=== PATIENT | male | born 1980 | race Caucasian/White ===

== ENCOUNTER 2022-02-27 20:57 | Emergency (ER) | payer BC ==
[2022-02-27 21:12] VITALS: TEMP 98.4
[2022-02-27] MEDS ORDERED: KETOROLAC 15 MG/ML 1 ML VIAL IM STA (22:08)
[2022-02-27] MEDS ORDERED: CYCLOBENZAPRINE 10MG STARTER 3 TAB BTL PO STA (22:09)
[2022-02-27] MEDS ORDERED: IBUPROFEN 600 MG STARTER PACK 4 TAB BTL PO STA (22:09)
--- NOTE | 2022-02-27 22:11 | ED ---
Back Pain HPI - General Chief Complaint: Back Pain/Injury Stated Complaint: Right lower back pain Time Seen by Provider: 02/27/22 21:58 Source: patient Limitations: no limitations - History of Present Illness Initial Comments: Patient with a long-standing history of recurrent right lower back problems presents with pain in the right lumbar area which has been bothering him since Tuesday. 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 Patient states any movement exacerbates the pain. There is some radiation into the thigh which is intermittent. Patient is able to ambulate but states that twisting and bending exacerbates the pain. No problems with bowel movements or urination. No fever or chills. There was no direct trauma. Patient has no immunosuppression. No IV drug abuse. No headache, no fever or chills, no changes in vision or hearing, no sore throat or difficulty with speech, no neck pain, no chest pain or shortness of breath, no abdominal pain, no nausea or vomiting, no changes in urination or bowel movements, no numbness or tingling, no extremity pain, no skin rashes or lesions. - Related Data Previous Rx's Medication Instructions Recorded Cyclobenzaprine [Flexeril] 10 mg PO TID PRN #20 tab 02/27/22 Ibuprofen [Motrin] 600 mg PO Q8HR PRN #30 tab 02/27/22 Allergies Allergy/AdvReac Type Severity Reaction Status Date / Time No Known Allergies Allergy Verified 02/27/22 21:08 Review of Systems ROS Statement: Those systems with pertinent positive or pertinent negative responses have been documented in the HPI. ROS Other: All systems not noted in ROS Statement are negative. Past Medical History Past Medical History: No Reported History History of Any Multi-Drug Resistant Organisms: None Reported Past Surgical History: No Surgical Hx Reported Past Psychological History: No Psychological Hx Reported Smoking Status: Never smoker Past Alcohol Use History: Occasional Past Drug Use History: None Reported General Exam - General Exam Comments Initial Comments: She does not appear to be ill or toxic. Vital signs reviewed noted be tachyc ardic in triage. However by auscultation his heart rate is 92. Limitations: no limitations General appearance: in distress Head exam: Present: atraumatic, normocephalic, normal inspection Eye exam: Present: normal appearance, PERRL, EOMI. Absent: scleral icterus, conjunctival injection, periorbital swelling ENT exam: Present: normal exam, mucous membranes moist Neck exam: Present: normal inspection. Absent: tenderness, meningismus, lymphadenopathy Respiratory exam: Present: normal lung sounds bilaterally. Absent: respiratory distress, wheezes, rales, rhonchi, stridor Cardiovascular Exam: Present: regular rate, normal rhythm, normal heart sounds. Absent: systolic murmur, diastolic murmur, rubs, gallop, clicks GI/Abdominal exam: Present: soft. Absent: distended, tenderness, guarding, rebound, rigid Extremities exam: Present: normal inspection, full ROM, normal capillary refill. Absent: tenderness, pedal edema, joint swelling, calf tenderness Back exam: Present: normal inspection, tenderness (Right lumbar), muscle spasm (Right lumbar), paraspinal tenderness. Absent: full ROM, CVA tenderness (R), CVA tenderness (L), vertebral tenderness, rash noted Neurological exam: Present: alert, oriented X3, CN II-XII intact, normal gait (Somewhat guarded due to back pain), reflexes normal, other (Straight leg raise is negative bilaterally). Absent: motor sensory deficit Psychiatric exam: Present: normal affect, normal mood Skin exam: Present: warm, dry, intact, normal color. Absent: rash Course Vital Signs 02/27/22 02/27/22 21:08 22:12 Temperature 98.4 F Pulse Rate 116 H 96 Respiratory 20 16 Rate Blood Pressure 123/83 150/95 O2 Sat by Pulse 95 100 Oximetry Medical Decision Making - Medical Decision Making -There are no red flags for concerning back pathology. Specifically: -No history of cancer, this is not a mass effect, MRI not indicated. -No anticoagulation, this is not a bleed. -No fevers, no IVDU, this is not an infectious process. -No trauma, no bony pain, x-rays are not indicated. -With a normal neuro exam, and no urinary or bowel retention or incontinence, there is no clinical sign of motor defect or cauda equina - MRI is not indicated at this point. -No pulsating abdominal mass or risk factors for AAA. -Pain is relieved with rest, which is also less concerning. -I do not believe that x-rays or emergent MRI is indicated at this time. -We will treat symptomatically and discharge home with follow up instructions. -Stretching/strengthening exercise given to patient and they will be referred to physical therapy -Patient is instructed to use [id number] analgesics as directed on packaging for pain. Patient was told to return to the ER for any signs or symptoms worsen. Told to return immediately if any other problems arise. All questions answered. Treatment plan discussed. Patient in agreement Every effort has been made to ensure accuracy of this dictation. However, due to the limitations of electronic medical records and dictation devices, errors in charting still occur. Restaurant General Manager Dr. Mendoza Disposition Clinical Impression: Acute lumbar myofascial strain Disposition: HOME SELF-CARE Condition: Stable Instructions (If sedation given, give patient instructions): Acute Low Back Pain (ED) Additional Instructions: Follow-up with your regular physician as directed. Return to the ER immediately if any symptoms worsen, new symptoms arise, or any other problems develop. Prescriptions: Cyclobenzaprine [Flexeril] 10 mg PO TID PRN #20 tab PRN Reason: Spasms Ibuprofen [Motrin] 600 mg PO Q8HR PRN #30 tab PRN Reason: Pain Is patient prescribed a controlled substance at d/c from ED?: No Referrals: None,Stated [Primary Care Provider] - 1-2 days Time of Disposition: 23:13
[2022-02-27 22:40] VITALS: BP 150/95; PULSE 96; RESP 16
== END 2022-02-27 23:25 | disposition home or self-care (01) ==
LOC: EC 20:57
DX: S39.012A Strain of muscle, fascia and tendon of lower back, initial encounter (principal); X58.XXXA Exposure to other specified factors, initial encounter
CPT/HCPCS: 99283; 96372; J1885